=== PATIENT | male | born 1970 | race Caucasian/White ===

== ENCOUNTER 2020-03-12 11:52 | Inpatient (IN) | payer BC ==
[~2020-03-12] VITALS: Ht 185.4 cm; Wt 102.3 kg
[2020-03-12] MEDS ORDERED: CHOL100062 PO (12:24)
[2020-03-12] MEDS ORDERED: LOSA50TA64 PO (12:24)
[2020-03-12] MEDS ORDERED: SIMV20TA PO (12:24)
[2020-03-12] MEDS ORDERED: morphine 2 MG/ML inj. syringe IV PRN ×2 (13:50)
[2020-03-12] MEDS ORDERED: HYDROcodone/acetaminophen 5mg/325mg tablet PO PRN (13:50)
[2020-03-12] MEDS ORDERED: HYDROcodone/acetaminophen 10/325mg tab PO PRN (13:50)
[2020-03-12] MEDS ORDERED: ondansetron/PF 4mg/2ml inj IV PRN (13:50)
[2020-03-12] MEDS ORDERED: acetaminophen 325mg tablet PO PRN ×2 (13:50)
[2020-03-12] MEDS ORDERED: magnesium hydroxide 30ml (MOM) UD suspension PO PRN (13:50)
[2020-03-12] MEDS ORDERED: mag hydrox/Alum hydrox/simeth 30ml oral suspension PO PRN (13:50)
[2020-03-12 14:30] LABS: BASOPHILS % (AUTO) 0.6 % (0-1); EOSINOPHILS # (AUTO) 0.1 X10'3 (0-0.9); EOSINOPHILS % (AUTO) 1.1 % (0-6); HEMOGLOBIN 16.5 g/dl (14.0-17.9); LYMPHOCYTES # (AUTO) 1.5 X10'3 (1.1-4.8); LYMPHOCYTES % (AUTO) 20.8 % (21-51); MEAN CORPUSCULAR HEMOGLOBIN 29.8 PG (27.0-31.0); MEAN CORPUSCULAR HGB CONC 34.3 g/dL (33.0-36.5); MEAN CORPUSCULAR VOLUME 86.9 FL (78-98); MEAN PLATELET VOLUME 7.4 FL (7.4-10.4); MONOCYTES # (AUTO) 0.6 X10'3 (0-0.9); MONOCYTES % (AUTO) 7.8 % (2-12); NEUTROPHILS # (AUTO) 4.9 X10'3 (1.8-7.7); NEUTROPHILS % (AUTO) 69.7 % (42-75); PLATELET COUNT 317 X10'3 (140-440); RED BLOOD COUNT 5.53 X10'6 (4.70-6.10); RED CELL DISTRIBUTION WIDTH 14.5 % (11.5-14.5); WHITE BLOOD COUNT 7.1 X10'3 (4.5-11.0)
[2020-03-12 14:37] LABS: PARTIAL THROMBOPLASTIN TIME 28 SECONDS (22-32)
[2020-03-12 14:46] LABS: ALANINE AMINOTRANSFERASE 84 U/L (12-78); ALBUMIN 4.1 G/DL (3.4-5.0); ALBUMIN/GLOBULIN RATIO 0.9 (1.1-1.5); ALKALINE PHOSPHATASE 93 IU/L (46-116); ANION GAP 11 (8-16); ASPARTATE AMINO TRANSFERASE 33 U/L (10-37); BILIRUBIN,TOTAL 0.7 MG/DL (0.1-1.0); BLOOD UREA NITROGEN 14 MG/DL (7-18); BUN/CREATININE RATIO 16.1 (5.4-32.0); CALCIUM 9.2 MG/DL (8.5-10.1); CHLORIDE 104 MMOL/L (99-107); CREATININE 0.87 MG/DL (0.60-1.10); GLUCOSE 97 MG/DL (70-104); POTASSIUM 3.8 MMOL/L (3.5-5.1); SODIUM 140 MMOL/L (135-145); TOTAL CARBON DIOXIDE 24.9 MMOL/L (24-32); TOTAL PROTEIN 8.5 G/DL (6.4-8.2); eGFR > 90 ML/MIN
[2020-03-12] MEDS: losartan 50mg tablet PO SCH (15:09)
--- NOTE | 2020-03-12 16:15 | NUR ---
Patient in room ED 16. I have received report from RILEY Dumont and had the opportunity to ask questions and assume patient care.
--- NOTE | 2020-03-12 18:19 | NUR ---
Problems reprioritized. Patient report given, questions answered & plan of care reviewed with Katy LIN.
--- NOTE | 2020-03-12 18:19 | NUR ---
Patient in room U 3011. I have received report from Umm Gallagher and had the opportunity to ask questions and assume patient care. Addendum: 03/12/20 at 1820 by Katy Thrasher RN Amended: Links added.
[2020-03-12 19:10] VITALS: BP 156/107
--- NOTE | 2020-03-12 20:39 | NUR ---
A/O PLEASANT SITTING UP IN BED WATCHING TV.
[2020-03-12] MEDS ORDERED: atorvastatin 10mg tablet PO SCH (21:00)
--- NOTE | 2020-03-12 22:30 | NUR ---
MEDICATED FOR VERY MILD BACK DISCOMFORT AFTER ADMIT QUESTIONS COMPLETED. PT PLEASANT A/O AND TEACHING REGARDING THE EFFECTS OF HIGH BLOOD PRESSURE UNTREATED TO HIS VITAL ORGANS, SELF EXPLAINED. TALKED ABOUT MEASURES TO HELP HIM NOT TO FOR GET TO TAKE HIS MEDICATIONS ETC WENT OVER WITH HIM.
[2020-03-12 22:31] VITALS: BP 146/106
--- NOTE | 2020-03-13 00:15 | NUR ---
RESTING EYES CLOSED WITHOUT CHANGES AT THIS TIME.
[2020-03-13 02:00] VITALS: BP 122/79
--- NOTE | 2020-03-13 02:00 | NUR ---
bp back down pt resting eyes closed appears comfortable.
--- NOTE | 2020-03-13 03:53 | NUR ---
remains resting without changes.
[2020-03-13 04:56] LABS: BASOPHILS % (AUTO) 0.7 % (0-1); EOSINOPHILS # (AUTO) 0.2 X10'3 (0-0.9); EOSINOPHILS % (AUTO) 3.2 % (0-6); LYMPHOCYTES # (AUTO) 1.7 X10'3 (1.1-4.8); LYMPHOCYTES % (AUTO) 24.9 % (21-51); MEAN CORPUSCULAR HEMOGLOBIN 29.7 PG (27.0-31.0); MEAN CORPUSCULAR VOLUME 87.1 FL (78-98); MEAN PLATELET VOLUME 7.4 FL (7.4-10.4); MONOCYTES # (AUTO) 0.7 X10'3 (0-0.9); MONOCYTES % (AUTO) 9.5 % (2-12); NEUTROPHILS # (AUTO) 4.3 X10'3 (1.8-7.7); NEUTROPHILS % (AUTO) 61.7 % (42-75); PLATELET COUNT 280 X10'3 (140-440); RED BLOOD COUNT 5.39 X10'6 (4.70-6.10); RED CELL DISTRIBUTION WIDTH 14.2 % (11.5-14.5)
--- NOTE | 2020-03-13 05:00 | NUR ---
pt resting eyes closed without s&s of distress at this time.
[2020-03-13 05:16] LABS: ALANINE AMINOTRANSFERASE 75 U/L (12-78); ALBUMIN 3.6 G/DL (3.4-5.0); ALBUMIN/GLOBULIN RATIO 0.9 (1.1-1.5); ALKALINE PHOSPHATASE 83 IU/L (46-116); ANION GAP 10 (8-16); ASPARTATE AMINO TRANSFERASE 30 U/L (10-37); BILIRUBIN,TOTAL 0.9 MG/DL (0.1-1.0); BLOOD UREA NITROGEN 17 MG/DL (7-18); BUN/CREATININE RATIO 17.9 (5.4-32.0); CALCIUM 8.9 MG/DL (8.5-10.1); CHLORIDE 105 MMOL/L (99-107); CREATININE 0.95 MG/DL (0.60-1.10); GLUCOSE 100 MG/DL (70-104); POTASSIUM 3.8 MMOL/L (3.5-5.1); SODIUM 139 MMOL/L (135-145); TOTAL CARBON DIOXIDE 24.1 MMOL/L (24-32); TOTAL PROTEIN 7.6 G/DL (6.4-8.2); eGFR 84 ML/MIN
[2020-03-13 06:00] VITALS: BP 145/102
--- NOTE | 2020-03-13 06:13 | NUR ---
Problems reprioritized. Patient report given, questions answered & plan of care reviewed with DOMENIC LIN. Addendum: 03/13/20 at 0614 by Katy Thrasher RN Amended: Links added.
[2020-03-13 07:40] VITALS: BP_SYST 145
[2020-03-13] MEDS: losartan 50mg tablet PO SCH (07:40)
[2020-03-13] MEDS ORDERED: losartan 50mg tablet PO SCH (08:00)
[2020-03-13] MEDS ORDERED: losartan 25mg tablet PO SCH (08:00)
[2020-03-13] MEDS ORDERED: PANT40TA54 PO (09:09)
--- NOTE | 2020-03-13 09:25 | NUR ---
Paged; [phone], Matilde Garcia. Patient would like to speak regarding why the bronchoscopy was canceled, and why pt is being d/brigid with same problem unresolved. Les, Tele
[2020-03-13] MEDS ORDERED: DILT120C52 PO (10:23)
--- NOTE | 2020-03-13 12:40 | NUR ---
Patient discharged home into the care of family. Patient alert, oriented, and appropriate for discharge. Patient left with all belongings and will follow up with primary care provider within one week. Patient verbalized understanding for all discharge instructions. Patient instructed thoroughly upon hemoptysis and hypertension with emphasis on emergent symptoms and lifestyle modifications. Patient discharge was delayed by transportation. Patient IV removed, patient tele removed and medications were sent to [facility] in [place] where the patient resides.
== END 2020-03-13 12:40 | disposition home or self-care (01) | DRG 204 ==
LOC: ER 11:53 → ED HOLD 13:46 → PCU 3S 16:25
PROVIDERS: ADMIT Internal Medicine; ATTEND Internal Medicine
DX: R04.2 Hemoptysis (principal); E78.5 Hyperlipidemia, unspecified; I10 Essential (primary) hypertension; K21.9 Gastro-esophageal reflux disease without esophagitis; K44.9 Diaphragmatic hernia without obstruction or gangrene; Z79.899 Other long term (current) drug therapy
CPT/HCPCS: 36415; 80053; 83880; 85025; 85610; 85651; 85730; 87081; 93306; 93308; 99285; G0378